=== PATIENT | male | born 1940 | race Caucasian/White ===

== ENCOUNTER 2020-05-05 08:42 | Outpatient (NON) | payer MEDICARE, OTHER, SELFPAY ==
[2020-05-06 06:44] LABS: SARS-CoV-2 RNA PCR Positive
== END 2020-05-05 08:43 ==
PROVIDERS: PCP Family Medicine; Visit Provider Family Medicine
DX: U07.1 COVID-19 (principal)
CPT/HCPCS: 87635; C9803; U0003

== ENCOUNTER 2020-08-17 08:51 | Outpatient (CLI) | payer MEDICARE, OTHER, SELFPAY | END 2020-08-17 08:52 | disposition home or self-care (01) | LOC: ANHCOVIDVC 08:51 | PROVIDERS: PCP Family Medicine | DX: Z23 Encounter for immunization (principal) | CPT/HCPCS: 0001A; 91300 ==

== ENCOUNTER 2020-09-07 08:43 | Outpatient (CLI) | payer MEDICARE, OTHER, SELFPAY | END 2020-09-07 08:44 | disposition home or self-care (01) | LOC: ANHCOVIDVC 08:43 | PROVIDERS: PCP Family Medicine | DX: Z23 Encounter for immunization (principal) | CPT/HCPCS: 0002A; 91300 ==

== ENCOUNTER 2020-12-30 11:06 | Emergency (ER) | payer MEDICARE, OTHER, SELFPAY ==
[2020-12-30] VITALS (42 sets, daily range): BP systolic 98–167; BP diastolic 30–99; PULSE 74–102; RESP 13–30; TEMP 36.2; O2SAT 93–100
--- NOTE | ~2020-12-30 | XR_ITS ---
EXAMINATION: XR chest 1V DATE: 12/30/2020 12:30 INDICATION: Decreased level of awareness. TECHNIQUE: A single frontal view of the chest was obtained. COMPARISON: Chest single view 03/18/2017 FINDINGS: There is mild atelectasis at the lung bases. No pleural effusion or pneumothorax. The heart size is normal. Surgical clips in the right upper quadrant are likely from cholecystectomy. IMPRESSION: 1. Mild atelectasis at the lung bases. Reviewed, dictated and finalized at location A.
--- NOTE | ~2020-12-30 | CT_ITS ---
EXAMINATION: CT brain wo con DATE: 12/30/2020 12:27 INDICATION: Confusion. TECHNIQUE: Computed tomography (CT) of the head was performed without intravenous contrast. The mA wa s adjusted according to patient size. Iterative reconstruction technique was employed. The dose-lengt h product was 605.33 mGy-cm. COMPARISON: Head CT 02/23/2004 FINDINGS: Centered in the left frontal lobe, there is a 3.7 cm periventricular mass that extends in t he corpus callosum across the midline to the right. There is surrounding low-attenuation vasogenic ed carlyle in left frontal lobe. There is mass effect on the frontal horn and anterior body of left lateral ventricle. There is 5 mm rightward midline shift. There is no acute ischemic infarct or intracranial hemorrhage. There are likely changes of ocular lens replacement surgeries. The mastoid air cells are normal. There is a 3.2 cm mass in right maxillary sinus with erosion of the medial and posterolateral schaeffer. IMPRESSION: 1. 3.7 cm mass centered in left frontal lobe. The differential diagnosis includes glioblastoma, lymph scar, and metastatic disease. 2. 3.2 cm mass in right maxillary sinus with erosions of bone. The differential diagnosis includes ly mphoma, primary malignancy such as squamous cell carcinoma, metastatic disease, and invasive fungal s inusitis. Reviewed, dictated and finalized at location A. IMPRESSION: 1. 3.7 cm mass centered in left frontal lobe. The differential diagnosis includ es glioblastoma, lymphoma, and metastatic disease. 2. 3.2 cm mass in right maxillary sinus with erosions of bone. The differential diagnosis includes lymphoma, primary malignancy such as squamous cell carcinom a, metastatic disease, and invasive fungal sinusitis.
--- NOTE | 2020-12-30 11:17 | ECG_ITS ---
Measurements Intervals [place] Rate: 82 P: -32 CA: 202 QRS: 5 QRSD: 87 T: 43 QT: 369 QTc: 432 Interpretive Statements SINUS RHYTHM BORDERLINE AV CONDUCTION DELAY CANNOT RULE OUT SEPTAL INFARCT, AGE INDETERMINATE BASELINE ARTIFACT- I, II, III, AVF, V4-V6 ABNORMAL ECG Electronically Signed On 12-30-2020 11:22:43 CDT by Ángel Torres D.O.
[2020-12-30 11:18] LABS: Glucose Point of Care 115 mg/dl (65-105)
[2020-12-30 11:36] LABS: Basophils Percent Auto 0.3 % (0.2-1.2); Eosinophils Absolute Auto 0.1 K/mm3 (0-0.3); Eosinophils Percent Auto 0.8 % (0-4.4); Hematocrit 45.5 % (42.0-52.0); Hemoglobin 15.2 g/dL (14.0-18.0); Immature Granulocyte Absolute 0.03 K/mm3 (0.00-0.031); Immature Granulocyte Percent A 0.3 % (0-0.5); Lymphocytes Absolute Auto 2.35 K/mm3 (0.9-3.2); Lymphocytes Percent Auto 22.3 % (18.3-44.2); Mean Corpuscular HGB Conc 33.4 g/dl (32-36); Mean Corpuscular Hemoglobin 31.6 pg (26-34); Mean Corpuscular Volume 94.6 fl (80-100); Mean Platelet Volume 10.2 fl (7.4-10.4); Monocytes Absolute Auto 0.8 K/mm3 (0.1-0.6); Monocytes Percent Auto 7.2 % (2.6-8.5); Neutrophils Absolute Auto 7.3 K/mm3 (1.3-6.7); Neutrophils Percent Auto 69.1 % (45.5-73.1); Platelet Count Result 206 k/mm3 (150-375); Red Blood Count 4.81 M/mm3 (4.6-6.20); Red Cell Distribution Width 12.9 % (11.5-14.5); White Blood Count 10.6 K/mm3 (4.5-10.0)
[2020-12-30 11:55] LABS: Alanine Aminotransferase 28 U/L (4-50); Albumin Level 4.3 g/dL (3.5-5.1); Alkaline Phosphatase 60 U/L (38-126); Anion Gap 8 mmol/L (8-16); Aspartate Amino Transferase 39 U/L (17-59); Blood Urea Nitrogen 17 mg/dL (9-20); Calcium 9.3 mg/dL (8.4-10.2); Carbon Dioxide 30 mmol/L (22-30); Chloride 96 mmol/L (98-107); Estimated CRCL calculation 73 ml/min; Estimated Glomerular Filt Rate > 60; Glucose 119 mg/dL (75-110); Potassium 3.9 mmol/L (3.4-5.0); Sodium 134 mmol/L (137-145)
--- NOTE | 2020-12-30 12:11 | PC.NURSE ---
unable to straight cath using regular cath and coude. pt has hx prostate issues
--- NOTE | 2020-12-30 12:31 | ED.GENADULT ---
HPI - General Adult General Chief complaint: Altered Mental Status Stated complaint: slurred speech Time Seen by Provider: 12/30/20 12:07 Source: patient and family Limitations: no limitations History of Present Illness HPI narrative: Patient is 80 years old white male brought to the emergency room by his who is telling me that patient been having a funny, unsteady walk for the last 2 weeks, also intermittent urinary incontinence for the last 7 days, patient drinks beer daily, did not drink over the last 48 hours, patient also tell me that patient have spells of confusion. Currently patient is awake, alert and oriented x4 denying any symptoms. Patient is telling me he came to the emergency room today because his forced him to do that. Patient denies any fever, chills, nausea, vomiting, chest pain, headache, shortness of breath, back pain, abdominal pain. Patient is fully vaccinated for COVID-19. Patient is DNR. Related Data Home Medications Medication Instructions Recorded Confirmed cholecalciferol (vitamin D3) 50 50 mcg PO DAILY 02/29/20 11/09/20 mcg (2,000 unit) capsule cyanocobalamin (vitamin B-12) 1,000 mcg PO DAILY 02/29/20 11/09/20 1,000 mcg tablet naproxen sodium 220 mg tablet 440 mg PO DAILY tablet 02/29/20 11/09/20 Allergies Allergy/AdvReac Type Severity Reaction Status Date / Time 6-suhcbps-Q-tryptophan Allergy Unknown did not Verified 11/09/20 09:15 (oxitriptan) like the confusion side effects Review of Systems Review of Systems: Narrative: CONSTITUTIONAL: Denies fever, chills, or sweats. EYES: Denies visual changes, redness, or discharge. ENT: Denies rhinorrhea, congestion, sore throat, or otalgia. CARDIOVASCULAR: Denies chest pain, palpitations, or edema. RESPIRATORY: Denies cough or dyspnea. GASTROINTESTINAL: Denies abdominal pain, nausea, vomiting, or diarrhea. GENITOURINARY: Denies dysuria or hematuria. SKIN: Denies rash or itching. MUSCULOSKELETAL: Denies back pain, joint pain, or myalgia. NEUROLOGIC: Denies headache, numbness, or weakness. PSYCHIATRIC: Denies anxiety or depression. [facility] Surgical History Surgical History H/O Spinal surgery (~2019) History of left knee replacement (~2013) Family History Family History Father Family history of cardiovascular disease Mother Family history of cardiovascular disease Social History Social History Alcohol intake: current Exam Narrative: Exam Narrative: General appearance: Well-developed, well-nourished Skin: Normal color Head: Normocephalic, nontraumatic Eyes: Clear conjunctiva ENT: Oropharynx normal, ears normal, nose normal Neck: Supple, nontender Chest and respiratory: Airway patent, no respiratory distress, no accessory muscle use Heart: Regular rate/rhythm Abdomen: Soft, nontender, no organomegaly, quiet bowel sounds Vascular: Normal peripheral pulses, normal capillary refill. 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 No bed available at this time. Date: 12/30/20 Time: 16:00 Consultation #2: [facility], Dr. WADE, neurosurgeon at [facility] accepted patient transfusion. DR BOYLE, hospitalist at [facility] who accepted patient transfer Date: 12/30/20 Time: 16:01 Vital Signs Vital signs: Vital Signs Temperatur
[2020-12-30 14:44] LABS: Add Urine Microscopic? YES; Appearance Urine Clear (Clear); Bacteria Urine Trace /hpf; Bilirubin Urine Negative (Negative); Blood Urine Negative (Negative); Color Urine Yellow (Yellow); Glucose Urine UA Negative (Negative); Ketones Urine Trace mg/dL (Negative); Leukocyte Esterase Ur Negative LEU/UL (Negative); Mucus Urine Rare /lpf; Nitrate Urine Negative (Negative); Protein Urine Negative (Negative); RBC Urine 0-2 /hpf (0-2); WBC Urine 0-3 /hpf
--- NOTE | 2020-12-30 14:48 | PC.NURSE ---
pt has had both [employer] vaccines
--- NOTE | 2020-12-30 19:23 | PC.NURSE ---
assumed care of patient
--- NOTE | 2020-12-30 20:15 | PC.NURSE ---
per [facility] access line there will be no neruro beds avaiable until tomorrow. patient transferred to hospital bed
--- NOTE | 2020-12-30 21:10 | PC.NURSE ---
called [facility] to request transport. ETA [phone], [facility], and [facility] unavailable.
--- NOTE | 2020-12-30 21:29 | PC.NURSE ---
report called to kayode Hernandez at [facility] neuro unit. [facility] called for transport
--- NOTE | 2020-12-31 01:05 | PC.NURSE ---
called [facility] for ETA update. ETA [phone] [facility] declined - does not have the resources tonight.
[2020-12-31 01:47] VITALS: BP 136/70; PULSE 75; RESP 20; O2SAT 24
== END 2020-12-31 03:30 | disposition short-term general hospital (02) ==
PROVIDERS: Emergency Provider Emergency Medicine; PCP Family Medicine
DX: G93.89 Other specified disorders of brain (principal); J34.89 Other specified disorders of nose and nasal sinuses; Z96.652 Presence of left artificial knee joint; E78.00 Pure hypercholesterolemia, unspecified; I10 Essential (primary) hypertension; N40.0 Benign prostatic hyperplasia without lower urinary tract symptoms; Z66 Do not resuscitate; R94.31 Abnormal electrocardiogram [ECG] [EKG]
CPT/HCPCS: 36415; 70450; 71045; 80053; 81001; 82948; 85025; 93005; 99285

== ENCOUNTER 2021-01-24 18:22 | Emergency (ER) | payer MEDICARE, OTHER, SELFPAY ==
[2021-01-24] VITALS (25 sets, daily range): BP systolic 107–127; BP diastolic 52–64; PULSE 77–88; RESP 12–21; TEMP 37.1; O2SAT 89–99
--- NOTE | ~2021-01-24 | CT_ITS ---
EXAMINATION: CT lumbar spine wo con DATE: 01/24/2021 19:58 INDICATION: Low back pain TECHNIQUE: Computed tomography (CT) of the lumbar spine was performed without intravenous contrast. A utomated exposure control and iterative reconstruction technique were employed. The dose-length produ ct was 1238.08 mGy-cm. COMPARISON: Lumbar spine MR dated 06/03/2015 FINDINGS: Interval attempted instrumented posterior spinal fusion at L4-L5 with interbody bone graft cages and bilateral vertical blake and pedicle screw fixations. No lucency surrounding the screws to suggest loos ening or infection. There is as of yet however no definitive osseous bridging across the disc space. Mild lower lumbar levocurvature. 3 mm retrolisthesis L3 on L4. Vertebral body heights are normal. No fracture. Severe disc height loss at L1-L2 and moderate disc height loss at L2-L3 and L3-L4. Mild dis c height loss at T11-T12 and L5-S1. The following disc levels are specifically discussed: T11-T12: The disc does not extend beyond the endplate margin. There is moderate bilateral facet joint osteoarthritis. There is no neural foraminal stenosis. There is no central canal stenosis. T12-L1: The disc does not extend beyond the endplate margin. There is left and moderate right facet j oint osteoarthritis. There is no neural foraminal stenosis. There is no central canal stenosis. L1-L2: Stricture disc osteophyte complex. There is severe left and moderate right facet joint osteoar thritis. There is moderate bilateral neural foraminal stenosis. There is mild central canal stenosis. L2-L3: Disc is bulging. There is hypertrophy of the ligamentum flavum. There is moderate left and se red right facet joint osteoarthritis. There is moderate left and moderate to severe right neural for aminal stenosis. There is severe central canal stenosis. L3-L4: Disc is bulging. There is hypertrophy of the ligamentum flavum. There is severe bilateral face t joint osteoarthritis. There is moderate bilateral neural foraminal stenosis. There is severe centra l canal stenosis. L4-L5: Anterior and posterior spinal fusion procedures with prominent hypertrophic change at the bila teral facet joints which also appear without evident solid osseous fusion. There is moderate bilatera l neural foraminal stenosis. There is severe central canal stenosis. L5-S1: Disc is mildly bulging. There is severe bilateral facet joint osteoarthritis. There is mild le ft and mild to moderate right neural foraminal stenosis. There is mild central canal stenosis. IMPRESSION: 1. Severe lumbar spondylosis. 2. Attempted instrumented anterior and posterior spinal fusion at L4-L5 without solid osseous fusion. Reviewed, dictated and finalized at location A.
--- NOTE | ~2021-01-24 | XR_ITS ---
EXAMINATION: XR chest 1V portable DATE: 01/24/2021 19:45 INDICATION: Weakness. TECHNIQUE: frontal view of the chest was obtained. COMPARISON: Chest radiograph dated 12/30/2020 FINDINGS: Small lung volumes. Mild bibasilar opacities and favor atelectasis over pneumonia. No pulmonary edema , pleural effusion or pneumothorax. The cardiomediastinal silhouette is within normal limits for AP t echnique. There are bridging osteophytes at multiple levels in the spine, consistent with diffuse idi opathic skeletal hyperostosis (DISH). IMPRESSION: 1. Small lung volumes with mild bibasilar atelectasis versus less likely pneumonia. Reviewed, dictated and finalized at location A. IMPRESSION: 1. Small lung volumes with mild bibasilar atelectasis versus less likely pneumo anastasiia.
--- NOTE | 2021-01-24 19:08 | ED.GENADULT ---
HPI - General Adult General Chief complaint: Unspecified Stated complaint: multiple c/o s/p chemo treatment Time Seen by Provider: 01/24/21 19:08 Source: patient, family, EMS and RN notes reviewed Mode of arrival: EMS Limitations: no limitations History of Present Illness HPI narrative: Patient is 80 years old white male brought to the emergency room by ambulance with his because of lower back pain. History of lymphoma with brain metastasis got discharged from [facility] 5 days ago, had slight lower back pain at that time. Got worse at home. Patient unable to get out of bed without a lot of pastry assistant. told me that patient had loose stool started last night, 3 episodes so far. Patient was advised by his oncologist at [facility] to go to the closest emergency room for stabilization. Patient denies any fever, chills, nausea, vomiting, abdominal pain, chest pain, shortness of breath, headache. History of lower back spinal fusion. Related Data Home Medications Medication Instructions Recorded Confirmed cholecalciferol (vitamin D3) 50 50 mcg PO DAILY 02/29/20 11/09/20 mcg (2,000 unit) capsule cyanocobalamin (vitamin B-12) 1,000 mcg PO DAILY 02/29/20 11/09/20 1,000 mcg tablet naproxen sodium 220 mg tablet 440 mg PO DAILY tablet 02/29/20 11/09/20 Allergies Allergy/AdvReac Type Severity Reaction Status Date / Time 2-xplujij-O-tryptophan Allergy Unknown did not Verified 01/24/21 18:36 (oxitriptan) like the confusion side effects Review of Systems Review of Systems: CONSTITUTIONAL: Denies fever, chills, or sweats. EYES: Denies visual changes, redness, or discharge. ENT: Denies rhinorrhea, congestion, sore throat, or otalgia. CARDIOVASCULAR: Denies chest pain, palpitations, or edema. RESPIRATORY: Denies cough or dyspnea. GASTROINTESTINAL: Denies abdominal pain, nausea, vomiting, or diarrhea. GENITOURINARY: Denies dysuria or hematuria. SKIN: Denies rash or itching. MUSCULOSKELETAL: Denies back pain, joint pain, or myalgia. NEUROLOGIC: Denies headache, numbness, or weakness. PSYCHIATRIC: Denies anxiety or depression. [facility] Surgical History Surgical History H/O Spinal surgery (~2019) History of left knee replacement (~2013) Family History Family History Father Family history of cardiovascular disease Mother Family history of cardiovascular disease Social History Social History Alcohol intake: current Exam Narrative: General appearance: Well-developed, well-nourished, patient looks in pain, hard to turn over to any side while laying down in bed, at the bedside Skin: Normal color Head: Normocephalic, nontraumatic Eyes: Clear conjunctiva ENT: Oropharynx normal, ears normal, nose normal Neck: Supple, nontender Chest and respiratory: Airway patent, no respiratory distress, no accessory muscle use Heart: Regular rate/rhythm Abdomen: Soft, nontender, no organomegaly, quiet bowel sounds Vascular: Normal peripheral pulses, normal capillary refill. Musculoskeletal: Severe limited range of motion at the lumbar area, mild tenderness at the mid lumbar area and left paraspinous area. No bruises, no swelling, no rash Neurologic: Alert and oriented ?3, FINANCING ANALYST is normal as tested, no gross motor deficit Course Course Emergency Course: Stable Consultations Consultation #1: DR XIE, oncologist at [facility], accepted patient on his face. Date: 01/24/21 Vital Signs Vital signs: Vital Signs Pulse Rate 83 01/24/21 18:25
--- NOTE | 2021-01-24 19:10 | ECG_ITS ---
Measurements Intervals [place] Rate: 81 P: 7 OR: 249 QRS: 18 QRSD: 91 T: 31 QT: 365 QTc: 426 Interpretive Statements SINUS RHYTHM WITH FIRST DEGREE AV BLOCK VENTRICULAR PREMATURE COMPLEX BASELINE ARTIFACT- I, II, III, AVR, V3-V6 ABNORMAL ECG Electronically Signed On 01-25-2021 5:42:38 CDT by Ángel Torres D.O.
[2021-01-24] MEDS: HYDROmorphone HCL INJ (*CRX) 1 MG/ML SYR 0.5 MG IV PUSH (20:08)
[2021-01-24] MEDS: ONDANSETRON INJ 4 MG/2 ML VIAL IV PUSH (20:09)
[2021-01-24 20:19] LABS: Hematocrit 37.2 % (42.0-52.0); Hemoglobin 13.2 g/dL (14.0-18.0); Mean Corpuscular HGB Conc 35.5 g/dl (32-36); Mean Corpuscular Hemoglobin 32.3 pg (26-34); Mean Platelet Volume 9.5 fl (7.4-10.4); Platelet Count Result 93 k/mm3 (150-375); Red Blood Count 4.09 M/mm3 (4.6-6.20); Red Cell Distribution Width 12.2 % (11.5-14.5); White Blood Count 2.5 K/mm3 (4.5-10.0)
[2021-01-24 20:34] LABS: Alanine Aminotransferase 56 U/L (4-50); Albumin Level 3.3 g/dL (3.5-5.1); Alkaline Phosphatase 101 U/L (38-126); Anion Gap 7 mmol/L (8-16); Aspartate Amino Transferase 24 U/L (17-59); Blood Urea Nitrogen 25 mg/dL (9-20); CRP 6.2 mg/dL (<1.0); Calcium 8.9 mg/dL (8.4-10.2); Carbon Dioxide 25 mmol/L (22-30); Chloride 94 mmol/L (98-107); Estimated CRCL calculation 59 ml/min; Estimated Glomerular Filt Rate > 60; Glucose 136 mg/dL (65-110); Potassium 3.5 mmol/L (3.4-5.0); Sodium 126 mmol/L (137-145)
[2021-01-24 20:40] LABS: Band Neutrophils Percent 8 % (0-6); Eosinophils Absolute Manual 0.12 K/mm3 (0.02-0.5); Eosinophils Percent Manual 5 % (0-4); Monocytes Percent Manual 4 % (3-9); Neutrophils Absolute Manual 1.37 K/mm3 (1.3-6.7); Neutrophils Percent Manual 47 % (46-73); Platelet Estimate Decreased (Adequate); Total Cells Counted 100
[2021-01-24 20:41] LABS: Anisocytosis 1+ (NORMAL)
[2021-01-24 21:29] LABS: Add Urine Microscopic? NO; Appearance Urine Clear (Clear); Bilirubin Urine Negative (Negative); Blood Urine Negative (Negative); Color Urine Yellow (Yellow); Glucose Urine UA Negative (Negative); Ketones Urine Negative (Negative); Leukocyte Esterase Ur Negative LEU/UL (Negative); Nitrate Urine Negative (Negative); Protein Urine Negative (Negative); Specific Grav Ur 1.019 (1.001-1.035); Urobilinogen Urine Negative mg/dL (<2.0)
[2021-01-24] MEDS: SODIUM CHLORIDE 0.9% IV 1,000 ML 999 ML IV CONT (21:34)
--- NOTE | 2021-01-24 22:41 | PC.NURSE ---
Addendum entered by Mary Farrell 01/24/21 22:50: note corrected pt is going to [facility] Original Note: made contact with [employer] [facility] [place] [id number] [address] [id number]
[2021-01-25 00:01] VITALS: BP 117/68; PULSE 85; RESP 19; O2SAT 98
--- NOTE | 2021-01-25 00:14 | PC.NURSE ---
Nurse at [facility] unable to take report at this time, nurse to call ED shortly.
[2021-01-25 00:16] VITALS: BP 106/60; PULSE 83; RESP 20; O2SAT 99
[2021-01-25 00:32] VITALS: BP 107/54; PULSE 82; RESP 16; O2SAT 98
--- NOTE | 2021-01-25 00:45 | PC.NURSE ---
Phone number left by pt's ,
--- NOTE | 2021-01-25 01:26 | PC.NURSE ---
lefty has arrived and is aware of pt destination
== END 2021-01-25 01:39 | disposition short-term general hospital (02) ==
PROVIDERS: Emergency Provider Emergency Medicine; PCP Family Medicine
DX: E87.1 Hypo-osmolality and hyponatremia (principal); D69.6 Thrombocytopenia, unspecified; C79.31 Secondary malignant neoplasm of brain; D72.819 Decreased white blood cell count, unspecified; R19.7 Diarrhea, unspecified; M54.5 Low back pain; Z85.72 Personal history of non-Hodgkin lymphomas; Z79.1 Long term (current) use of non-steroidal anti-inflammatories (NSAID); Z20.822 Contact with and (suspected) exposure to COVID-19
CPT/HCPCS: 36415; 71045; 72131; 80053; 81003; 85025; 86140; 87040; 87077; 87186; 87426; 93005; 96361; 96365; 96375; 99285; C9803; J0692; J1170; J2405; J7030

== ENCOUNTER 2021-08-16 10:45 | Emergency (ER) | payer MEDICARE, OTHER, SELFPAY ==
[2021-08-16 11:02] VITALS: BP 141/79; PULSE 97; RESP 18; TEMP 36.2; O2SAT 99
[2021-08-16 11:04] VITALS: BP 141/79; PULSE 97; RESP 18; TEMP 36.2; O2SAT 99
--- NOTE | 2021-08-16 11:21 | ED.WOUNDLAC ---
HPI - Wound/Laceration General Chief Complaint: Wound/Laceration Stated Complaint: Wound Rt Elbow Time Seen by Provider: 08/16/21 11:22 Source: patient Mode of arrival: ambulatory Limitations: no limitations History of Present Illness HPI narrative: 80-year-old male presented for complaint of laceration to right lateral elbow, injury occurred 2 days ago. States he scraped the arm against concrete wall. Bleeding was controlled yesterday. He sent pictures to his PCP who instructed him to have it evaluated. Patient is currently undergoing chemo treatment for brain cancer. Denies numbness, tingling, weakness of the right upper extremity. No surrounding redness, induration, streaking or drainage. No blood thinners. Related Data Home Medications Medication Instructions Recorded Confirmed cholecalciferol (vitamin D3) 50 50 mcg PO DAILY 02/29/20 08/16/21 mcg (2,000 unit) capsule cyanocobalamin (vitamin B-12) 1,000 mcg PO DAILY 02/29/20 08/16/21 1,000 mcg tablet Allergies Allergy/AdvReac Type Severity Reaction Status Date / Time 6-dvvzfyo-K-tryptophan Allergy Unknown did not Verified 08/16/21 11:03 (oxitriptan) like the confusion side effects Review of Systems Review of Systems: CONSTITUTIONAL: Denies body aches, fever, chills, or sweats. EYES: Denies visual changes, redness, or discharge. ENT: Denies rhinorrhea, congestion, sore throat, or otalgia. CARDIOVASCULAR: Denies chest pain, palpitations, or edema. RESPIRATORY: Denies cough or dyspnea. GASTROINTESTINAL: Denies abdominal pain, nausea, vomiting, or diarrhea. GENITOURINARY: Denies dysuria or hematuria. SKIN: right elbow laceration MUSCULOSKELETAL: Denies back pain, joint pain, or myalgia. NEUROLOGIC: Denies headache, numbness, tingling, or weakness. PSYCH: Denies depression or anxiety. [facility] Surgical History Surgical History H/O Spinal surgery (~2019) History of left knee replacement (~2012) Family History Family History Father Family history of cardiovascular disease Mother Family history of cardiovascular disease Social History Social History Alcohol intake: current Comments At time of signature, I have reviewed and agree with nursing past medical, surgical, social and family history unless otherwise noted. Please see nursing chart for further information. There is no relevant family history pertinent to the presenting complaint Exam Narrative: GENERAL: Well-appearing, well-nourished, and in no acute distress. HEAD: Normocephalic, atraumatic. EYES: conjunctivae clear, and EOMI. ENT: Mucous membranes moist. Oropharynx without edema, erythema or lesions. NECK: Supple. No lymphadenopathy CHEST: Clear to auscultation. No respiratory distress. HEART: Regular rate and rhythm. SKIN: Warm, dry, poor turgor; laceration with flap to right lateral elbow approx [id number] diameter; no active drainage,surrounding bruising NEURO: Alert and oriented x3. PSYCH: Normal mood and affect Course Course Emergency Course: at bedside. Discussed at length the need to keep skin and clots in place. Patient is aware of diagnosis, understands and agrees to treatment plan. Anticipatory guidance given. Patient agrees to follow-up as directed and is aware of reasons to seek care at the emergency department. v/u Portions of this record may have been created with voice recognition software Level of Care: Express Care Visit Vital Signs Vital signs: Vital Signs Temperature 97.2 F L 08/16/21 11:02 Pulse Rate 97 08/16/21 11:02 Respiratory Rate 18 08/16/21 11:02 Blood Pressure 141/79 H 08/16/21 11:02 Pulse Oximetry 99 08/16/21 11:02 Temperature 97.2 F L 08/16/21 11:04 Pulse Rate 97 08/16/21 11:04 Respiratory Rate 18 08/16/21 1
== END 2021-08-16 12:18 | disposition home or self-care (01) ==
PROVIDERS: Emergency Provider Nurse Practitioner Family; PCP Family Medicine
DX: S51.011A Laceration without foreign body of right elbow, initial encounter (principal); W22.01XA Walked into wall, initial encounter; Z96.652 Presence of left artificial knee joint
CPT/HCPCS: 12002; 99213; G0463

== ENCOUNTER 2022-07-31 22:11 | Emergency (ER) | payer MEDICARE, OTHER, SELFPAY ==
--- NOTE | ~2022-07-31 | CT_ITS ---
EXAMINATION: CT brain wo con DATE: 07/31/2022 22:27 INDICATION: altered mental status . TECHNIQUE: Computed tomography (CT) of the head was performed without intravenous contrast. The mA wa s adjusted according to patient size. Iterative reconstruction technique was employed. The dose-lengt h product was 681.00 mGy-cm. COMPARISON: 12/30/2020. FINDINGS: No acute intracranial hemorrhage or extra-axial fluid collection. No hydrocephalus, mass, or herniation. No acute ischemic infarct. Unremarkable dural venous sinus attenuation. No acute osseous abnormality. Old left frontal cornelio hole. Mucosal thickening in the bilateral maxillary and ethmoid air cells. The remaining aerated spaces are clear. Mild atrophy and chronic white matter change. Small area of left posterior frontal/periventricular en cephalomalacia. Atherosclerotic intracranial calcification. Bilateral lens replacements. IMPRESSION: No acute intracranial process. Reviewed, dictated and finalized at location K. BASE SUPPORT
--- NOTE | ~2022-07-31 | XR_ITS ---
XR chest 1V portable 07/31/2022 23:13 Indication: Stroke symptoms. Procedure: AP portable chest Comparison: Comparison to multiple prior studies sequentially, with oldest reviewed study dated 12/30. Findings: Shallow inspiration. Bibasilar airspace disease. No significant effusion or pneumothorax. T here is atherosclerosis. Impression: 1: Bibasilar airspace consolidation may represent pneumonia, edema and/or atelectasis. Shallow inspir ation. Reviewed, dictated and finalized at location A. ER REPAIR AND SALVAGE Impression: 1: Bibasilar airspace consolidation may represent pneumonia, edema and/or atele ctasis. Shallow inspiration.
--- NOTE | ~2022-07-31 | CT_ITS ---
EXAMINATION: CT abdomen pelvis wo con DATE: 08/01/2022 01:35 INDICATION: Abdomen pain. TECHNIQUE: Computed tomography (CT) of the abdomen and pelvis was performed without intravenous contr ast. The dose-length product was 971.68 mGy-cm. Automated exposure control and iterative reconstructi on technique were employed. COMPARISON: CT dated 07/12/2015 FINDINGS: There is dependent atelectasis. No significant pleural or pericardial effusion. Heart size normal. There is atherosclerosis of the aorta and coronary arteries. There is severe left hydronephro sis without significant dilation of the ureter, consistent with UPJ obstruction. There is nonspecific bilateral perinephric stranding. There are calcified granulomas of the spleen. There are cholecystec marianna clips. No renal stones. No right hydronephrosis. Nonobstructive bowel gas pattern. Bladder is de compressed by Lenz catheter. Severe lower thoracic and lumbar spondylosis with posterior spinal fusi on at L4-5. IMPRESSION: 1. Severe hydronephrosis, likely secondary to UPJ obstruction. Nonspecific bilateral perinephric stra nding. Reviewed, dictated and finalized at location A. ING MACHINE OPERATOR AUTOMATIC IMPRESSION: 1. Severe hydronephrosis, likely secondary to UPJ obstruction. Nonspecific bila teral perinephric stranding.
[2022-07-31] MEDS: SODIUM CHLORIDE 0.9% IV 1,000 ML 999 ML IV CONT ×2 (22:15→23:10)
[2022-07-31 22:23] LABS: Estimated Glomerular Filt Rate 16
[2022-07-31 22:46] LABS: Hematocrit 37.1 % (42.0-52.0); Mean Corpuscular Hemoglobin 33.2 pg (26-34); Mean Corpuscular Volume 94.6 fl (80-100); Platelet Count Result 118 k/mm3 (150-375); Red Blood Count 3.92 M/mm3 (4.6-6.20); Red Cell Distribution Width 13.8 % (11.5-14.5); White Blood Count 16.5 K/mm3 (4.5-10.0)
[2022-07-31 22:57] LABS: Magnesium 2.4 mg/dL (1.6-2.3)
[2022-07-31 22:59] LABS: Albumin Level 3.1 g/dL (3.5-5.1); Alkaline Phosphatase 428 U/L (38-126); Anion Gap 9 mmol/L (8-16); Aspartate Amino Transferase 83 U/L (17-59); Bilirubin,Total 4.5 mg/dL (0.2-1.3); Blood Urea Nitrogen 27 mg/dL (9-20); Calcium 7.8 mg/dL (8.4-10.2); Carbon Dioxide 22 mmol/L (22-30); Chloride 93 mmol/L (98-107); Estimated Glomerular Filt Rate 17; Glucose 108 mg/dL (65-110); Potassium 3.3 mmol/L (3.4-5.0); Sodium 124 mmol/L (137-145)
[2022-07-31 23:00] LABS: Lactic Acid Reflex 5.6 mmol/L (0.7-2.0)
[2022-07-31 23:01] LABS: Ammonia < 9 umol/L (9-30); Ethanol < 10 mg/dL (<10)
[2022-07-31 23:03] LABS: INR 1.4; Partial Thromboplastin Time 28.9 SECONDS (22.3-36.8); Prothrombin Time 16.4 Seconds (11.1-14.7)
[2022-07-31 23:08] LABS: Alanine Aminotransferase 93 U/L (6-50)
[2022-07-31 23:11] LABS: Troponin I 0.041 ng/mL (0.000-0.034)
[2022-07-31 23:13] VITALS: BP 83/60; PULSE 87; RESP 18; O2SAT 96
[2022-07-31 23:15] VITALS: PULSE 88; RESP 21
[2022-07-31 23:16] VITALS: BP 83/60
[2022-07-31 23:26] LABS: Glucose Point of Care 113 mg/dl (65-105)
[2022-07-31 23:31] LABS: Anisocytosis 1+ (NORMAL); Band Neutrophils Percent 47 % (0-6); Blastocytes 1 %; Lymphocytes Absolute Manual 0.16 K/mm3 (1.1-4.5); Macrocytosis 2+ (NORMAL); Metamyelocytes Percent 11 %; Myelocytes Percent 4 %; Neutrophils Absolute Manual 13.53 K/mm3 (1.3-6.7); Neutrophils Percent Manual 35 % (46-73); Platelet Estimate Adequate (Adequate); Promyelocytes Percent 1 %; Schistocytes None Seen (NORMAL); Total Cells Counted 100
[2022-07-31 23:32] LABS: Burr Cells 1+ (NORMAL)
[2022-07-31 23:34] LABS: Crenated RBC 1+ (NORMAL)
[2022-07-31 23:48] LABS: Appearance Urine Cloudy (Clear); Bilirubin Urine Negative (Negative); Blood Urine 2+ (Negative); Color Urine Yellow (Yellow); Glucose Urine UA Negative (Negative); Ketones Urine Negative (Negative); Leukocyte Esterase Ur 3+ LEU/UL (Negative); Nitrate Urine Negative (Negative); Protein Urine 2+ mg/dL (Negative); Urobilinogen Urine 0.2 mg/dL (<2.0); pH Urine 5.5 (5.0-9.0)
[2022-07-31 23:50] LABS: Procalcitonin 55.6 ng/mL
[2022-07-31 23:53] LABS: Bacteria Urine Trace /hpf; Mucus Urine Rare /lpf; WBC Urine >75 /hpf
[2022-08-01] VITALS (69 sets, daily range): BP systolic 64–143; BP diastolic 44–106; PULSE 77–126; RESP 14–33; TEMP 36.8; O2SAT 89–100
--- NOTE | 2022-08-01 | ECG_ITS ---
Measurements Intervals [place] Rate: 86 P: 106 [place]: 250 QRS: 24 QRSD: 87 T: 39 QT: 372 QTc: 447 Interpretive Statements SINUS RHYTHM WITH FIRST DEGREE AV BLOCK COMPARED TO ECG 01/24/2021 20:22:25, NO SIGNIFICANT CHANGE Electronically Signed On 08-01-2022 12:53:20 POLISHER DIAL by Jessica Sparks M.D.
[2022-08-01 00:05] LABS: Add Urine Microscopic? YES
[2022-08-01 00:21] LABS: Influenza A QL RT-PCR Negative (Negative); Influenza B QL RT-PCR Negative (Negative); RSV RNA, RT-PCR Negative (Negative); SARS-CoV-2 RNA PCR Negative
[2022-08-01 00:31] LABS: Amphetamine Screen Urine Negative (Negative); Barbiturate Screen Urine Negative (Negative); Benzodiazepines Screen Urine Negative (Negative); Cannabinoid Screen Urine Negative (Negative); Cocaine Screen Urine Negative (Negative); Methadone Screen Urine Negative (Negative); Opiate Screen Urine Negative (Negative); Phencyclidine Screen Urine Negative (Negative)
[2022-08-01] MEDS: SODIUM CHLORIDE 0.9% IV 1,000 ML 999 ML IV CONT ×2 (00:41→00:56)
[2022-08-01 00:52] LABS: Troponin I 0.042 ng/mL (0.000-0.034)
[2022-08-01 01:43] LABS: Reflex Lactic Acid Yes or No Add Lactic
[2022-08-01] MEDS: NOREPINEPHRINE 8 MG/D5W 250 ML 8 MG/250 ML BAG 9.38 MG IV CONT (02:16)
[2022-08-01] MEDS: SODIUM CHLORIDE 0.9% IV 1,000 ML 200 ML IV CONT (02:22)
--- NOTE | 2022-08-01 04:17 | ED.GENADULT ---
HPI - General Adult General Chief complaint: Altered Mental Status Stated complaint: AMS History of Present Illness HPI narrative: Patient is a 81-year-old gentleman who presents the emergency department with chief complaint of altered mental status. Per the family the patient has been less responsive throughout the day and has been much more weaker. The patient family called EMS and was found to be hypotensive per EMS the patient had a fast ED score of 4 in the field but the family initially opted to come to [facility] as opposed to going to a regional stroke center. Upon arrival to the emergency department patient underwent CT head that showed no evidence of hemorrhage or large stroke. Upon arrival of the patient's family they report that he receives all of his care at [facility] and ultimately would request that he be admitted at that facility. Related Data Home Medications Medication Instructions Recorded Confirmed cholecalciferol (vitamin D3) 50 50 mcg PO DAILY 02/29/20 11/15/21 mcg (2,000 unit) capsule cyanocobalamin (vitamin B-12) 1,000 mcg PO DAILY 02/29/20 11/15/21 1,000 mcg tablet calcium carbonate 600 mg calcium 600 mg PO DAILY 04/27/22 (1,500 mg) tablet (Calcium) Allergies Allergy/AdvReac Type Severity Reaction Status Date / Time 3-[id number]-A-tryptophan Allergy Unknown did not Verified 04/27/22 08:57 (oxitriptan) like the confusion side effects Review of Systems Review of Systems: A 10 system review of systems was completed on the patient and is negative except for what is stated in the HPI. Nursing and ancillary documentation was reviewed. [facility] Past Medical History Medical History Strain of lumbar region Surgical History Surgical History H/O Spinal surgery (~2018) History of left knee replacement (~2012) Family History Family History Father Family history of cardiovascular disease Mother Family history of cardiovascular disease Social History Social History Smoking status: Never smoker Alcohol intake: current Exam Narrative: GENERAL: Well-appearing, well-nourished, and in no acute distress. HEAD: Normocephalic, atraumatic. EYES: PERRLA and EOMI. ENT: Nares clear, no rhinorrhea or epistaxis. Mucous membranes moist. NECK: Supple. CHEST: Clear to auscultation. No respiratory distress. HEART: Regular rate and rhythm. No murmur heard. Normal peripheral pulses. ABDOMEN: Soft, nontender, nondistended, normal active bowel sounds. EXTREMITIES: Normal range of motion. No edema. SKIN: Warm, dry, no rash. NEURO: No focal deficits. Alert and oriented x2. PSYCH: Normal mood and affect. Course Course Emergency Course: Patient was initially hypotensive in the emergency department 30/kg normal saline was started patient was found to have acute kidney injury with a creatinine of 3.4. Fluid resuscitation was continued the patient also was found to have a significant lactic acidosis urinalysis showed evidence of UTI chest x-ray shows evidence of developing infiltrate as well procalcitonin was elevated at 55.6 and the patient has a white blood cell count of 16.5. Broad-spectrum coverage was started with vancomycin and Zosyn the patient's blood gases pH 7.288 with a PCO2 of 31 and PO2 of 180. CT scan of the abdomen pelvis showed evidence of hydronephrosis and also stranding around the kidneys. Lactic acid after receiving IV fluid hydration has come down to 3.4 and is showing improvement. The patient did have an elevated troponin of 0.042. The patient maintained persistent hypotension after receiving IV fluids and a central line was placed under verbal consent from the family.
[2022-08-01 04:22] LABS: Lactic Acid 3.4 mmol/L (0.7-2.0)
--- NOTE | 2022-08-01 04:40 | PC.NURSE ---
pt. has increased work of breathing, pt has audible wheezing and coarse on auscultation. erp notified and breathing tx. ordered. VORB pt. can be placed on bipap. RT called and notified.
[2022-08-01] MEDS: ALBUTEROL SULFATE NEB 2.5 MG/3 ML INH INHALATION (04:48)
[2022-08-01] MEDS: IPRATROPIUM BR 0.02% INH SOLN 0.5 MG/2.5 ML VIAL INHALATION (04:48)
--- NOTE | 2022-08-01 05:00 | PC.NURSE ---
darline joseph/ Mary at [facility] transfer center states pt. has been accepted at [facility] by Dr. Owen will call back for report and room assignment.
[2022-08-01 05:04] LABS: Alveolar/Arterial O2 Gradient 140.3 mmHg; Base Excess ABG -10.7 mEq/l (+/-2.0); Carboxyhemoglobin 0.4 % THb (0-2.0); Fractional Inspired Oxygen 50 %; HCO3 ABG 14.7 mEq/l (22.0-26.0); Methemoglobin ABG 0.3 %THb (0-1.5); Oxygen Content ABG 17.8 %vol (16.0-22.0); Oxygen Saturation ABG 99.1 % (95.0-100.0); Oxyhemoglobin 97.9 % THb (90.0-100.0); PCO2 ABG 31.5 mmHg (35.0-45.0); PO2 ABG 180.8 mmHg (80.0-100.0); PO2 FiO2 Ratio Arterial Blood 3.62 %; Reduced Hemoglobin 1.4 %THb (0-5.0); Total Hemoglobin 12.7 g/dL (12.0-18.0)
[2022-08-01 05:05] LABS: Device NON-INVASIVE VENT; Modified Allen's Test Unable to perform; Non-Invasive Expiratory Pressure 5 CMH2O; Non-Invasive Inspiratory Pressure 10 CMH2O; Non-Invasive Vent Rate 14 /MIN; Site Drawn LEFT RADIAL; pH ABG 7.288 (7.350-7.450)
--- NOTE | 2022-08-01 05:30 | PC.NURSE ---
0530 attempted to give report states call back
== END 2022-08-01 06:45 | disposition short-term general hospital (02) ==
PROVIDERS: Emergency Provider Emergency Medicine; PCP Family Medicine
DX: A41.9 Sepsis, unspecified organism (principal); R65.20 Severe sepsis without septic shock; N17.9 Acute kidney failure, unspecified; N10 Acute pyelonephritis; J18.9 Pneumonia, unspecified organism; Z20.822 Contact with and (suspected) exposure to COVID-19; Z96.652 Presence of left artificial knee joint; I44.0 Atrioventricular block, first degree; N13.30 Unspecified hydronephrosis
CPT/HCPCS: 36415; 36556; 36600; 70450; 71045; 74176; 80053; 80307; 81001; 82140; 82375; 82805; 82948; 83050; 83605; 83735; 84145; 84484; 85025; 85610; 85730; 87040; 87077; 87086; 87186; 87637; 93005; 94002; 94640; 96361; 96365; 96366; 96367; 96368; 99285; C1751; J2543; J3370; J7030